=== PATIENT | male | born 2005 | race African-American/Black ===

== ENCOUNTER 2024-06-19 11:12 | Outpatient (AMB) | payer BC, SELFPAY ==
--- NOTE | 2024-06-19 11:17 | MHC.PC.OV ---
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 Prior PCP? - Unknown PCP name/practice Last office visit/CPE/labs - I have no idea. It's been a little while. Acute issue(s) - Genetial herpes: on valcyclovir 1000 mg BID. Denies genital lesions. - He reports seasonal depression. He occasionally feels sad, hopeless, and does not want to be here (earth). He notes that he sometimes does not want to partake in anything in [place]. I just want to be like a fucking bug or something.....or like my fat ass dog, just sit down and eat. He notes that he has been distracted and therefore has not felt depressed for the past 3 weeks. He has been going out every night, working, and taking out whores on dates. He notes that he is depressed 3 out of 7 days and has been feeling that way forever. He attributes his depression to multiple negative life experiences, including work and personal stressors. He denies reynold or hypomania episodes. He has a history of psychotherapy at childhood. He has never been evaluated by a psychiatrist. He denies history of taking psychotropic medications or psychiatric admissions. He currently lives with his mother. His father lives down the street from them. He notes that his mother and father have been nurturing and instrumental in his life. He is the only child. He has some college level education. He works at a [employer]. He notes that, at times, he feels likes he does not want to be here (earth); however, he does not have plans of committing suicide; he does not have the courage to do so. He denies anxiety. He denies homicidal ideation and auditory or visual hallucinations. Past Medical History - Gential herpes: on valcyclovir 1000 mg BID. Denies genital lesions. Surgical History - None Family History - Dad: Hypercholesterolemia - Mom: Asthma - MGM: Cancer (unknown) - MGF: Diabetes Social History - He started smoking cigarettes 3 wks ago and has been smoking 7 daily. Does not vape. Drinks 7 shots of vodka or smirnoff daily, started drinking heavily at his 19st birthday. He smokes 2-3 L of cannabis daily, up to 7L when with friends. - Has been making unhealthy dietary choices. He is active but does not exercise. 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 - Last eye exam was about a year ago - Last dental visit was 3-4 months ago - Last tetanus vaccine unknown but within the past 10 years - Has not been vaccinated for the flu this season; declines vaccination PFSH Family History (Updated 06/19/24 @ 11:32 by Melba Mark MA) Mother Asthma Maternal Grandmother High blood pressure Cancer Father High cholesterol Maternal Grandfather Diabetes Social History (Updated 06/19/24 @ 11:26 by Melba Mark MA) Housing: House Patient Tobacco Use Status: Current everyday Tobacco user Cigarettes Per Day: 7 e-Cigarette/Vaping Use: Never Used Second Hand Smoke Exposure: Yes Substance Use Type: Marijuana service: No Current occupational status: employed 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 1. Little interest or pleasure in doing things: several days 2. Feeling down, depressed, or hopeless: more than half the days 3. Trouble falling or staying asleep, or sleeping too much: several days 4. Feeling tired or having little energy: several days 5. Poor appetite or overeating: several days 6. Feeling bad about yourself - or that you are a failure or have let yourself or your family down: several days 7. Trouble concentrating on things, such as reading the newspaper or watching television: more than half the days 8. Moving or speaking so slowly that other people could have noticed. Or the opposite - being so fidgety or restless that you have been moving around a lot more than usual: not at all 9. Thoughts that you would be better off or of hurting yourself in some way: several days Total score: 10 Depression Screening Interpretation: Positive Depression Screening Follow-up: Existing condition Depression Screening Done: Yes 80152 - PHQ-9 Billing: Yes Source: Developed by Drs. Grant Nichols, Shannon Soto, Johnnie Wellington and colleagues, with an educational aryan from [employer]. Thrive Questionnaire Date Thrive assessed: 06/19/24 I am a: Patient What is your living situation today?: I have a steady place to live Within the past 12 months, did the food you bought not last and you didn't have the money to get more?: Never true Within the past 12 months, did you worry whether your food would run out before you got money to buy more?: Never true Do you have trouble paying for medicines?: No Do you have trouble getting transportation to medical appointments?: No Do you have trouble paying your heating and electricity bill?: No Do you have trouble taking care of your child, family member or friend?: No Do you have trouble with day-to-day activities such as bathing, preparing meals, shopping, managing finances, etc.?: No Are you currently unemployed and looking for a job?: No Are you interested in more education?: No Please select the resources that you would like help with: None Currently or been in a relationship where the following occur: No concerns reported THRIVE Score: 0 AUDIT C Alcohol Use Questionnaire (AUDIT-C) 1. How often do you have a drink containing alcohol?: 4 or more times a week 2. How many drinks containing alcohol do you have on a typical day when you are drinking?: 3 or 4 3. How often do you have six or more drinks on one occasion?: Daily or almost daily Total Score: 9 Score Reviewed/Action Taken: Yes ROBERTO-7 AMB Questionnaire ROBERTO-7 Date ROBERTO - 7 assessed: 06/19/24 Feeling nervous, anxious, or on edge: 1 = Several days Not being able to stop or control worryin = Not at all Worrying too much about different things: 1 = Several days Trouble relaxin = Not at all Being so restless that it is hard to sit still: 0 = Not at all Becoming easily annoyed or irritable: 1 = Several days Feeling afraid as if something awful might happen: 0 = Not at all Total ROBERTO-7 score (0-4 normal; 5-9 mild; 10-14 moderate; 15-21 severe): 3 Source: Developed by Drs. Grant Nichols, Shannon Soto, Johnnie Wellington and colleagues, with an educational aryan from [employer]. ROBERTO-7 Assessment Billing ROBERTO-7 Assessment Tool: ROBERTO-7 Assessment 46801 Review of Systems Const Details: Denies chills, Denies fatigue, Denies fever(s), Denies headache(s) and Denies weakness HEENT Denies change in vision, Denies dizziness, Denies headache(s), Denies hearing loss, Denies nasal congestion, Denies sinus pain, Denies sinus pressure and Denies sore throat Card Denies chest pain, Denies lightheadedness, Denies dyspnea and Denies other (palpitations) Resp Denies cough, Denies dyspnea and Denies wheezing GI Denies abdominal pain, Denies melena, Denies hematochezia, Denies change in bowel habits, Denies dyspepsia and Denies nausea Denies hematuria and Denies dysuria Musc Denies abnormal gait, Denies myalgias, Denies arthralgias, Denies numbness and Denies tingling Skin/Breast Denies rash, Denies unusual bruising and Denies wounds Neuro Denies abnormal gait, Denies dizziness, Denies headache(s), Denies memory loss, Denies numbness, Denies Sensory deficit (Neuro), Denies tingling and Denies weakness Psych Denies anxiety, Reports depression and Denies memory loss Endo Denies cold intolerance, Denies fatigue, Denies heat intolerance, Denies polydipsia and Denies polyuria Aniceto/Lymph Denies easy bleeding and Denies easy bruising Aller/Immun Denies wheezing Physical exam (Primary Care) Vital Signs: Last Vital Signs Temp 97.5 F 06/19/24 11:26 Pulse 66 06/19/24 11:26 Resp 16 06/19/24 11:26 BP 111/70 06/19/24 11:26 Pulse Ox 100 06/19/24 11:26 Oxygen Delivery Method Room Air 06/19/24 11:26 BMI result Body Mass Index 18.5 Tobacco/Smoking Status: Tobacco use Status Tobacco use date assessed 06/19/24 06/19/24 11:34 Patient Tobacco Use Status Current everyday Tobacco 06/19/24 11:34 e-Cigarette/Vaping Use Never Used 06/19/24 11:34 PHQ-9: PHQ-9 Score PHQ-9: Total score 10 06/28/24 07:06 Depression Screening Interpretation: Positive Depression Screening Follow-up: Existing condition Thrive Assessment: Date of Thrive Assessment Date Thrive assessed 06/19/24 06/19/24 11:34 Currently or been in a relationship where the following occur: No concerns reported Const Other: General: no acute distress, well developed, alert and awake Nutritional Appearance: well nourished Orientation/consciousness: patient oriented x3 HENMT Head: Yes normocephalic and Yes atraumatic Ears: hearing grossly normal bilaterally and TM's normal bilaterally General nose exam: Normal external nose present and Normal nares present Mouth: Normal oral and palatal mucosa present and moist mucous membranes Teeth and gingiva: dentition normal Throat: Yes oropharynx normal Eyes Pupils: Equal, round and reactive pupils present and Pupil accommodation reflex normal EOM: EOMs intact bilaterally Neck Neck: Yes normal visual inspection, Yes no lymphadenopathy and Yes trachea midline Thyroid: Thyroid normal Carotids: no bruits Lymphatic: no lymphadenopathy noted Chest Chest palpation & inspection: normal inspection of the chest Resp Effort & Inspection: normal respiratory effort Auscultation: clear to auscultation bilaterally Cardio Rate: regular rate Rhythm: regular rhythm Heart sounds: S1 normal heart sound present, S2 normal heart sound present, no gallops, no murmurs and no rubs Bruits: no abdominal aortic bruits and no carotid bruits GI Palpation (GI): No Abdominal aortic bruit present, Soft to palpation, nontender, No hepatosplenomegaly present and No Rebound tenderness present Auscultation: normal bowel sounds General: Yes no CVA tenderness Back/Spine/Pelvis Back: no CVA tenderness Cervical Spine: cervical ROM normal and No Cervical spine tenderness Thoracic/Lumbar Spine: thoraco-lumbar ROM normal, No pain with thoraco-lumbar ROM, No thoracic spinal tenderness and No lumbar spinal tenderness Skin General: warm and dry. Normal skin color. Normal skin turgor Lesions: no lesions Rashes: no rashes Trauma: no lacerations or abrasions Wounds: no wounds Nails: normal Neuro General: patient oriented x3, gait normal and CN's II-XI intact bilaterally Cranial nerves: Yes Equal, round and reactive pupils present Cognition (Neuro): normal cognition Gait exam (Neuro): Normal gait present Motor exam (neuro): 5/5 motor strength present throughout Sensory Exam: No Sensory deficit (Neuro) Deep tendon reflexes (DTR's): Right patellar reflex intensity grade: 2+ and Left patellar reflex intensity grade: 2+ Extrem General: Yes normal to inspection, No edema and No calf tenderness Psych Appearance: grossly normal Affect: normal affect Attitude: cooperative Thought process: Normal thought process present Coding Level of Care Code New Pt Level 4 (94724) New Pt Prev Care 18-39yr(61160 Diagnoses Normal physical examination, routine Z00.00 Depression F32.A Alcohol use disorder F10.90 Cannabis abuse F12.10 Smoking 1/2 pack a day or less F17.210 Poor nutrition E63.9 Poor sleep hygiene Z72.821 Screen for STD (sexually transmitted disease) Z11.3 Laboratory tests ordered as part of a complete physical exam (CPE) Z00.00 Additional Codes ROBERTO-7 Assessment Billing - ROBERTO-7 Assessment Tool: ROBERTO-7 Assessment 89319 ([id number]) PHQ-9 - 91178 - PHQ-9 Billing: Yes ([id number]) Assessment & Plan Assessment & Plan (1) Normal physical examination, routine: Code(s): Z00.00 - Encounter for general adult medical examination without abnormal findings Category: Medical Plan: No significant functional limitations noted. Healthy diet and routine exercise encouraged. Perform lab work and follow-up for telehealth visit in 2-3 weeks. Return sooner with symptoms or concerns. Verbalized understanding and agreed with the treatment plan. (2) Depression: Code(s): F32.A - Depression, unspecified Category: Medical Plan: He reports seasonal depression. He occasionally feels sad, hopeless, and does not want to be here (earth). He notes that he sometimes does not want to partake in anything in [place]. I just want to be like a fucking bug or something.....or like my fat ass dog, just sit down and eat. He notes that he has been distracted and therefore has not felt depressed for the past 3 weeks. He has been going out every night, working, and taking out whores on dates. He notes that he is depressed 3 out of 7 days and has been feeling that way forever. He attributes his depression to multiple negative life experiences, including work and personal stressors. He denies reynold or hypomania episodes. He has a history of psychotherapy at childhood. He has never been evaluated by a psychiatrist. He denies history of taking psychotropic medications or psychiatric admissions. He currently lives with his mother. His father lives down the street from them. He notes that his mother and father have been nurturing and instrumental in his life. He is the only child. He has some college level education. 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 He notes that, at times, he feels likes he does not want to be here (earth); however, he does not have plans of committing suicide; he does not have the courage to do so. He denies anxiety. He denies homicidal ideation and auditory or visual hallucinations. PHQ-9 score revealed moderate depression. ROBERTO-7 score is normal. He is willing to start depression treatment with psychotropic medications; however, he does not want to stop every use of cannabis which may interfere with treatment and potentially cause severe or life-threatening adverse reactions. He smokes 2-3 L of cannabis daily, up to 7L when with friends. He also drinks significant amount of alcohol which may significantly interfere with psychotropic medications. He is not willing to cut down or avoid alcohol consumption. He also declines referral for psychotherapy at this time. Routine exercise encouraged. Follow-up with PCP with concerns or worsening symptoms. Verbalized understanding and agreed with the plan. (3) Alcohol use disorder: Code(s): F10.90 - Alcohol use, unspecified, uncomplicated Category: Medical Plan: He drinks 7 shots of vodka or smirnoff daily, started drinking heavily at his 19st birthday. Instructed on the health risks and complications of excessive alcohol intake and encouraged to stop drinking. No more than 2 drinks daily or 5 weekly. Declines referral to [facility] for alcohol treatment and notes that he may start to cut down on drinking. Encouraged to follow-up with PCP if he changes mind on referral to [facility] or with any symptoms or concerns. Verbalized understanding and agreed with the plan. (4) Cannabis abuse: Code(s): F12.10 - Cannabis abuse, uncomplicated Category: Medical Plan: He smokes 2-3 L of cannabis daily, up to 7L when with friends. Encouraged to avoid excessive cannabis use which can worsen depressive or anxiety symptoms. Informed that cannabis may also interfere with metabolic activities of some antidepressants, potentially increasing side effects or altering effectiveness. Cannabis may also cause increased sedation dizziness or confusion when combined with certain psychotropic medications. He is open to treat his depression but would not stop his current having of cannabis use. Encouraged stop cannabis use and follow-up for treatment of his depression. He notes that he would not stop smoking cannabis. (5) Smoking 1/2 pack a day or less: Code(s): F17.210 - Nicotine dependence, cigarettes, uncomplicated Category: Social Hx Plan: He started smoking cigarettes 3 weeks ago and has been smoking 7 cigarettes daily. Instructed on the health risks and complications of cigarette smoking and encouraged smoking cessation. Declines nicotine treatment for smoking cessation at this time and notes that he will stop smoking without medication. Advised to follow-up with PCP as needed. Verbalized understanding and agreed with the plan. 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 Healthy diet and routine exercise encouraged. Encouraged to eat meals rich in protein to improve his weight. Routine exercise encouraged. Follow-up as needed. Verbalized understanding and agreed with the plan. (7) Poor sleep hygiene: Code(s): Z72.821 - Inadequate sleep hygiene Category: Medical Plan: His sleep is poor; he is usually at the clubs throughout the night for 4 days weekly and go to directly to work in the morning. Instructed on the effect of poor sleep on mental and physical health. Instructed on sleep hygiene. Verbalized understanding and agreed with the plan. (8) Screen for STD (sexually transmitted disease): Code(s): Z11.3 - Encounter for screening for infections with a predominantly sexual mode of transmission Category: Medical Plan: Labs ordered. (9) Laboratory tests ordered as part of a complete physical exam (CPE): Code(s): Z. - Encounter for general adult medical examination without abnormal findings Category: Medical Plan: Fasting labs ordered as part of a complete physical exam. Advised to fast for at least 10 hours before getting labs drawn. May drink water Verbalized understanding and agreed with treatment plan. Orders: Orders Microalbumin, Random (w Creat) 06/19/24 Z00. - Encounter for general adult medical examination without abnormal findings UA CC w/rflx Micro + Cult 06/19/24 Z00.00 - Encounter for general adult medical examination without abnormal findings Vitamin D 25-OH Total 06/19/24 Z00.00 - Encounter for general adult medical examination without abnormal findings Complete Blood Count Auto Diff 06/19/24 Z00.00 - Encounter for general adult medical examination without abnormal findings Comprehensive [place]. Panel Fast 06/19/24 Z00.00 - Encounter for general adult medical examination without abnormal findings Lipid Panel 06/19/24 Z00.00 - Encounter for general adult medical examination without abnormal findings TSH reflex Free T4 06/19/24 Z00.00 - Encounter for general adult medical examination without abnormal findings
[2024-06-19 11:26] VITALS: BP 111/70; PULSE 66; RESP 16; TEMP 36.4; O2SAT 100; BMI 18.5
== END 2024-06-19 12:14 | disposition home or self-care (01) ==
LOC: HO.HMCFM 11:12
PROVIDERS: PCP Nurse Practitioner Family; Visit Provider Nurse Practitioner Family
DX: Z00.00 Encounter for general adult medical examination without abnormal findings (principal); F32.A Depression, unspecified; F10.90 Alcohol use, unspecified, uncomplicated; F12.10 Cannabis abuse, uncomplicated; F17.210 Nicotine dependence, cigarettes, uncomplicated; E63.9 Nutritional deficiency, unspecified; Z72.821 Inadequate sleep hygiene; Z11.3 Encounter for screening for infections with a predominantly sexual mode of transmission

== ENCOUNTER → 2024-06-19 11:12 | Outpatient (BNVA) | payer BC, SELFPAY | PROVIDERS: PCP Nurse Practitioner Family; Visit Provider Nurse Practitioner Family | DX: Z00.00 Encounter for general adult medical examination without abnormal findings (principal); F32.A Depression, unspecified; F10.90 Alcohol use, unspecified, uncomplicated; F12.10 Cannabis abuse, uncomplicated; E63.9 Nutritional deficiency, unspecified; F17.210 Nicotine dependence, cigarettes, uncomplicated; Z72.821 Inadequate sleep hygiene | CPT/HCPCS: 96127 ==

== ENCOUNTER 2024-07-14 10:22 | Outpatient (REF) | payer BC, SELFPAY ==
--- OUTSIDE RECORDS SUMMARY | 2024-07-14 11:09 | XMS_ITS | Clinical Summary ---
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 20 each 06/07/2024 Encounters Date Type Department Care Team Description 06/07/2024 10:19 PM EDT - 06/08/2024 12:09 AM EDT Emergency [facility] Emergency [address] [place] [address] Herpes simplex infection of penis (Primary Dx); Lymphadenopathy; Dysuria Discharge Disposition: Home or Self Care from Last 3 Months Social History Tobacco Use Types Packs/Day Years Used Date Smoking Tobacco: Never Assessed Sex and Gender Information Value Date Recorded Sex Assigned at Male 06/07/2024 10:34 PM EDT Legal Sex Male 5:09 PM EDT Gender Identity Male 06/07/2024 10:34 PM EDT Sexual Orientation Straight 06/07/2024 10 :34 PM EDT Last Filed Vital Signs Vital Sign Reading Time Taken Comments Blood Pressure 110/75 06/07/2024 11:40 PM EDT Pulse 59 06/07/2024 11:40 PM EDT Temperature 36.9 ??C (98.4 ??F) 06/07/2024 11:40 PM E DT Respiratory Rate 17 06/07/2024 11:40 PM EDT Oxygen Saturation 97% 06/07/2024 11:40 PM EDT Inhaled Oxygen Concentration - - Weight 59 kg (130 lb) 06/07/2024 5:21 PM EDT Height 172.7 cm (5' 8 ) 06/07/2024 5:21 PM EDT Body Mass Index 19.77 06/07/2024 5:21 PM EDT Plan of Treatment Health Maintenance Due Date Last Done Comments IPV Vaccines (4 of 4 - 4-dose series) 2007 2003, 2003, 2003 DTaP,Tdap,and Td Vaccines (5 - Tdap) 2014 07/11/2004, 2003, 2003, Additional history exists HPV Vaccines (1 - Male 3-dose series) 2018 Meningococcal B Vaccine (1 of 2 - Standard) 2019 COVID-19 Vaccine ( - season) 2023 Annual Well Child Visit (3-21 years old) 06/08/2024 Depression Screening 06/08/2024 HIV Screening 06/08/2024 Hepatitis C Screening 06/08/2024 Social Influencers of Health Screening 06/08/2024 Influenza Vaccine (Season Ended) 2024 Hepatitis B Vaccines Completed 2003, 2003, 2003 Pneumococcal Vaccine: Pediatrics (0 to 5 Years) and At-Risk Patients (6 to 64 Years) Aged Out 2003, 2003, 2003 No longer eligible based on patient's age to complete this topic MMR Vaccines Completed 03/11/2004 Varicella Vaccines Aged Out 03/11/2004 No longer eligible based on patient's age to complete this topic HIB Vaccines Completed 07/11/2004, 08/10, 2003, Additional history exists Hepatitis A Vaccines Aged Out No long er eligible based on patient's age to complete this topic Meningococcal ACWY Vaccine Aged Out N o longer eligible based on patient's age to complete this topic RSV Immunization Patients Under 20 months Aged Out No longer eligible based on patient's age to complete this topic Procedures Procedure Name Priority Date/Time Associated Diagnosis Comments YELLOW URINE NO ADDITIVE Routine 06/07/2024 11:05 PM EDT EXTRA TUBES Routine 06/07/2024 11:05 PM EDT CHLAMYDIA TRACHOMATIS AND NEISSERIA GONORRHOEAE PCR STAT 06/07/2024 11:05 PM EDT [facility] URINE CULTURE TUBE STAT 06/07/2024 6:18 PM EDT URINALYSIS WITH REFLEX MICROSCOPIC AND CULTURE STAT 06/07/2024 6:18 PM EDT URINALYSIS WITH REFLEX MICROSCOPIC AND CULTURE STAT 06/07/2024 6:18 PM EDT TREPONEMA PALLIDUM ANTIBODY WITH REFLEX TO RPR AND PARTICLE AGGLUTINATION Add-On 06/07/2024 5:46 PM EDT CBC WITH AUTO DIFFERENTIAL STAT 06/07/2024 5:46 PM EDT LIPASE STAT 06/07/2024 5:46 PM EDT COMPREHENSIVE METABOLIC PANEL STAT 06/07/2024 5:46 PM EDT CBC AND DIFFERENTIAL STAT 06/07/2024 5:46 PM EDT from Last 3 Months Results * Yellow urine no additive (06/07/2024 11:05 PM EDT) Extra Tube Hold for add-ons. 06/08/2024 1:01 AM EDT [facility] Comment:Auto resulted. Urine Urine specimen obtained by clean catch procedure / Unknown 06/07/2024 11:05 PM EDT 06/07/2024 11:26 PM EDT us Iman AARGON LAB URINE ORDERABLES Final Resu lt [facility] [address] [place] [address], [place] [phone] * Chlamydia trachomatis and Neisseria gonorrhoeae molecular study (06/07/2024 11:05 PM EDT) [facility] Neisseria gonorrhoeae PCR Negative Negative LAB MOLECULAR DIAGNOSTICS METHOD 06/08/2024 2:18 PM EDT [facility] Chlamydia trachomatis PCR Negative Negative LAB MOLECULAR DIAGNOSTICS METHOD 06/08/2024 2:18 PM EDT [facility] Urine First stream urine specimen / Unknown 06/07/2024 11:05 PM EDT 06/07/2024 11:26 PM EDT us Iman ARAGON LAB MICROBIOLOGY - GENERAL JORY ALATORRE Final Result [facility] [address] [place] [address], [place] [phone] * (ABNORMAL) Urinalysis with reflex microscopic and culture (06/07/2024 6:18 PM EDT) [facility] Specific [place] Urine 1.017 1.003 - 1.030 LAB URINALYSIS - AUTOMATED METHOD 06/07/2024 6:50 PM T [facility] pH, Urine 6.5 5.0 - 8.0 pH LAB URINALYSIS - AUTOMATED METHOD 06/07/2024 6:50 PM [facility] Leukocytes, Urine Negative Negative LAB URINALYSIS - AUTOMATED METHOD 06/07/2024 6:50 PM [facility] Nitrite, Urine Negative Negative LAB URINALYSIS - AUTOMATED METHOD 06/07/2024 6:50 PM T [facility] Protein, Urine Trace <=Trace mg/dL LAB URINALYSIS - AUTOMATED METHOD 06/07/2024 6:50 PM T [facility] Glucose, Urine Negative Negative mg/dL LAB URINALYSIS - AUTOMATED METHOD 06/07/2024 6:50 PM [facility] Ketones, Urine Trace(A) Negative mg/dL LAB URINALYSIS - AUTOMATED METHOD 06/07/2024 6:50 PM EDT [facility] Urobilinogen, Urine 1.0 0.2 - 1.0 mg/dL LAB URINALYSIS - AUTOMATED METHOD 06/07/2024 6:50 PM EDT [facility] Bilirubin, Urine Negative Negative LAB URINALYSIS - AUTOMATED METHOD 06/07/2024 6:50 PM EDT [facility] Blood, Urine Negative Negative LAB URINALYSIS - AUTOMATED METHOD 06/07/2024 6:50 PM EDT [facility] Urine Urine specimen obtained by clean catch procedure / Unknown Non-blood Collection / Unknown 06/07/2024 6:18 PM EDT 06/07/2024 6:45 PM EDT Scott Marroquin MD LAB URINE ORDERABLES Final Resu lt Performing Organization Address City/[facility] Hospital/ZIP Co de Phone Number [facility] [address] [place] [address], [place] [phone] * Hickman urine culture tube (06/07/2024 6:18 PM EDT) Extra Tube Hold for add-ons. 06/07/2024 8:01 PM EDT [facility] Comment:Auto resulted. Urine Urine specimen obtained by clean catch procedure / Unknown Non-blood Collection / Unknown 06/07/2024 6:18 PM EDT 06/07/2024 6:45 PM EDT us Scott Marroquin MD LAB URINE ORDERABLES Final Resu lt [facility] [address] [place] [address], [place] [phone] * Treponema pallidum antibody with reflex to RPR and particle agglutination (06/07/2024 5:46 PM EDT) T. Pallidum Antibodies Negative Negative LAB CHEMISTRY METHOD 06/07/2024 11:36 PM EDT [facility] Blood Venous blood specimen / Unknown Venipuncture / Unknown 06/07/2024 5:46 PM EDT 06/07/2024 5:54 PM EDT us Iman ARAGON LAB BLOOD ORDERABLES Final Resu lt [facility] [address] [place] [address], * (ABNORMAL) CBC auto differential (06/07/2024 5:46 PM EDT) WBC 6.4 4.8 - 10.8 K/mcL LAB HEMETOLOGY METHOD 06/07/2024 6:00 PM EDT [facility] RBC 4.80 4.50 - 5.50 M/[facility] LAB HEMETOLOGY METHOD 06/07/2024 6:00 PM EDT [facility] Hemoglobin 14.7 13.5 - 17.5 g/dL LAB HEMETOLOGY METHOD 06/07/2024 6:00 PM EDT [facility] Hematocrit 43.4 42.0 - 54.0 % LAB HEMETOLOGY METHOD 06/07/2024 6:00 PM EDT [facility] MCV 90.2 79.0 - 98.0 FL LAB HEMETOLOGY METHOD 06/07/2024 6:00 PM EDT [facility] MCH 30.6 27.0 - 32.0 pcg LAB HEMETOLOGY METHOD 06/07/2024 6:00 PM EDT [facility] MCHC 33.9 32.0 - 37.0 g/dL LAB HEMETOLOGY METHOD 06/07/2024 6:00 PM EDT [facility] RDW 11.9 11.0 - 15.0 % LAB HEMETOLOGY METHOD 06/07/2024 6:00 PM T [facility] Platelets 213 130 - 400 K/mcL LAB HEMETOLOGY METHOD 06/07/2024 6:00 PM [facility] MPV 10.5 7.0 - 11.0 FL LAB HEMETOLOGY METHOD 06/07/2024 6:00 PM [facility] NRBC 0.0 <1.0 % LAB HEMETOLOGY METHOD 06/07/2024 6:00 PM [facility] NRBC Absolute 0.00 <0.10 K/mcL LAB HEMETOLOGY METHOD 06/07/2024 6:00 PM [facility] Neutrophils Relative 71.3 % LAB HEMETOLOGY METHOD 06/07/2024 6:00 PM [facility] Lymphocytes Relative 15.6 % LAB HEMETOLOGY METHOD 06/07/2024 6:00 PM [facility] Monocytes Relative 10.4 % LAB HEMETOLOGY METHOD 06/07/2024 6:00 PM [facility] Eosinophils Relative 1.9 % LAB HEMETOLOGY METHOD 06/07/2024 6:00 PM [facility] Basophils Relative 0.5 % LAB HEMETOLOGY METHOD 06/07/2024 6:00 PM [facility] Immature Granulocytes Relative 0.3 % LAB HEMETOLOGY METHOD 06/07/2024 6:00 PM [facility] Neutrophils Absolute 4.54 1.50 - 7.00 K/mcL LAB HEMETOLOGY METHOD 06/07/2024 6:00 PM [facility] Lymphocytes Absolute 0.99(L) 1.00 - 5.00 K/mcL LAB HEMETOLOGY METHOD 06/07/2024 6:00 PM [facility] Monocytes Absolute 0.66 0.20 - 1.00 K/mcL LAB HEMETOLOGY METHOD 06/07/2024 6:00 PM EDT [facility] Eosinophils Absolute 0.12 0.00 - 0.50 K/[facility] LAB HEMETOLOGY METHOD 06/07/2024 6:00 PM EDT [facility] Basophils Absolute 0.03 0.00 - 0.20 K/[facility] LAB HEMETOLOGY METHOD 06/07/2024 6:00 PM EDT [facility] Immature Granulocytes Absolute 0.02 0.00 - 0.03 K/[facility] LAB HEMETOLOGY METHOD 06/07/2024 6:00 PM EDT [facility] Blood Venous blood specimen / Unknown Venipuncture / Unknown 06/07/2024 5:46 PM EDT 06/07/2024 5:54 PM EDT Scottana Marroquin MD LAB BLOOD ORDERABLES Final Resu lt Performing Organization Address [facility]/ZIP Co de Phone Number [facility] [address] [place] [address], [place] [phone] * Lipase (06/07/2024 5:46 PM EDT) Lipase 20 13 - 75 unit/L LAB CHEMISTRY METHOD 06/07/2024 6:20 PM EDT [facility] Blood Venous blood specimen / Unknown Venipuncture / Unknown 06/07/2024 5:46 PM EDT 06/07/2024 5:54 PM EDT Scott Marroquin MD LAB BLOOD ORDERABLES Final Resu lt [facility] [address] [place] [address], [place] [phone] * (ABNORMAL) Comprehensive metabolic panel (06/07/2024 5:46 PM EDT) Sodium 138 133 - 145 mmol/L LAB CHEMISTRY METHOD 06/07/2024 6:20 PM EDT [facility] Potassium 3.9 3.5 - 5.5 mmol/L LAB CHEMISTRY METHOD 06/07/2024 6:20 PM [facility] Chloride 102 96 - 110 mmol/L LAB CHEMISTRY METHOD 06/07/2024 6:20 PM [facility] CO2 32 21 - 32 mmol/L LAB CHEMISTRY METHOD 06/07/2024 6:20 PM [facility] Anion Gap 4 3 - 11 LAB CHEMISTRY METHOD 06/07/2024 6:20 PM [facility] Glucose 108(H) 70 - 100 mg/dL LAB CHEMISTRY METHOD 06/07/2024 6:20 PM [facility] BUN 6 5 - 25 mg/dL LAB CHEMISTRY METHOD 06/07/2024 6:20 PM [facility] Creatinine 1.03 0.70 - 1.30 mg/dL LAB CHEMISTRY METHOD 06/07/2024 6:20 PM [facility] eGFR 106 >=60 mL/min/1. 73m2 LAB CHEMISTRY METHOD 06/07/2024 6:20 PM [facility] Comment:Calculation based on the??Chronic Kidney Disease Epidemiology Collaboration (CKD-EPI) equation refit??without adjustment for race. BUN/Creatinine Ratio 5.8 LAB CHEMISTRY METHOD 06/07/2024 6:20 PM [facility] Calcium 9.3 8.5 - 10.5 mg/dL LAB CHEMISTRY METHOD 06/07/2024 6:20 PM [facility] AST (SGOT) 13 10 - 42 unit/L LAB CHEMISTRY METHOD 06/07/2024 6:20 PM [facility] ALT (SGPT) 16 10 - 60 unit/L LAB CHEMISTRY METHOD 06/07/2024 6:20 PM [facility] Alkaline Phosphatase 90 42 - 121 unit/L LAB CHEMISTRY METHOD 06/07/2024 6:20 PM EDT [facility] Total Protein 7.6 6.0 - 8.0 g/dL LAB CHEMISTRY METHOD 06/07/2024 6:20 PM EDT [facility] Albumin 4.1 3.2 - 5.0 g/dL LAB CHEMISTRY METHOD 06/07/2024 6:20 PM EDT [facility] Total Bilirubin 0.4 0.0 - 1.4 mg/dL LAB CHEMISTRY METHOD 06/07/2024 6:20 PM EDT [facility] Blood Venous blood specimen / Unknown Venipuncture / Unknown 06/07/2024 5:46 PM EDT 06/07/2024 5:54 PM EDT Scott B Lopez [facility] LAB BLOOD ORDERABLES Final Resu lt [facility] [address] [place] [address], from Last 3 Months Insurance [facility] 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
[2024-07-14 14:04] LABS: MANUAL DIFF FLAG NO
[2024-07-14 14:07] LABS: Appearance Urine Clear; Color Urine Yellow; Glucose Urine UA Negative (Negative); Leukocyte Esterase Urine Trace (Negative); Nitrite Urine Negative (Negative); PH 8.5 (5.0-9.0); UMIC TRIGGER UACC YES; Urine Blood Negative (Negative); Urine Ketones Negative (Negative); Urine Protein Negative (Neg-Trace)
[2024-07-14 14:12] LABS: Bacteria Urine None Seen (None Seen); Hyaline Casts Urine 0-2 /LPF (0-2); RBC Urine 0-2 /HPF (0-2); Squamous Epithelial Cell Urine 0-2 /HPF (0-2); UACC Culture Trigger YES
[2024-07-14 14:16] LABS: Basophils Percent Auto 0.4 % (0-2); Eosinophils Absolute Auto 0.4 X10*3/uL (0.0-0.4); Eosinophils Percent Auto 5.1 % (0-4); Hematocrit 42.7 % (42.0-52.0); Imm Gran Abs Auto 0.03 X10*3/uL (0.00-0.03); Imm Gran Pct Auto 0.4 % (0.0-0.4); Lymphocytes Absolute Auto 1.8 X10*3/uL (1.2-4.9); Mean Corpuscular HGB Conc 35.1 g/dl (31.0-36.0); Mean Corpuscular Hemoglobin 31.3 pg (27.0-33.0); Mean Corpuscular Volume 89.1 fL (80.0-98.0); Mean Platelet Volume 10.9 fL (9.4-12.4); Monocytes Absolute Auto 0.7 X10*3/uL (0.1-1.2); Monocytes Percent Auto 9.8 % (2-11); Neutrophils Absolute Auto 4.2 x10*3/uL (2.0-8.3); Neutrophils Percent Auto 59.3 % (45-73); Platelet Count 317 X10*3/uL (160-400); Red Blood Count 4.79 X10*6/uL (4.60-5.80); Red Cell Distribution Width 13.1 % (11.0-16.0)
[2024-07-14 14:49] LABS: TSH reflex Free T4 1.21 uIU/mL (0.32-4.0); Vitamin D 25-OH Total 29.1 ng/mL (>30)
[2024-07-14 15:02] LABS: Anion Gap 8 (12-20)
[2024-07-14 15:07] LABS: Alanine Aminotransferase 24 U/L (0-40); Albumin Level 4.1 g/dL (3.5-5.0); Alkaline Phosphatase 78 U/L (39-117); Aspartate Amino Transferase 28 U/L (5-37); Bilirubin Total 0.4 mg/dL (0.0-1.0); Blood Urea Nitrogen 10 mg/dL (9-16); Calcium 9.3 mg/dL (8.4-10.2); Carbon Dioxide 31 mmol/L (22-29); Chloride 106 mmol/L (96-108); Cholesterol 177 mg/dL (<200); Estimated Glomerular Filt Rate > 60; Glucose Fasting 90 mg/dL (60-99); HDL Cholesterol 47 mg/dL (>40); LDL Cholesterol Calculated 105 mg/dL (<100); Potassium 3.8 mmol/L (3.3-5.1); Sodium 141 mmol/L (135-145); Triglycerides 126 mg/dL (<150)
[2024-07-14 15:21] LABS: Creatinine Urine 189.41 mg/dL; Microalbum/Creatinine Ratio Ur 2.6 ug/mg cr (<30)
[2024-07-14 16:14] LABS: CT PCR NOT DETECTED (Not Detect.); NG PCR NOT DETECTED (Not Detect.)
[2024-07-15 03:57] LABS: Syphilis Screen Nonreactive (Nonreactive)
[2024-07-15 04:09] LABS: HBS Num1 0.83 mIU/mL (0-7.99); HBc Num1 0.34 S/CO (0.00-0.79); HBsAGNum1 0.47 S/CO (0.00-0.99); HIV AB/AG Nonreactive (Nonreactive); HIV Num 1 0.06 S/CO (0.00-0.99); Hepatitis B Core Antibody Nonreactive (Nonreactive); Hepatitis B Surface Antigen Negative (Negative); ~HepC Num1 0.32 S/CO (0.00-0.79); ~Hepatitis B Surface Antibody NONREACTIVE (Nonreactive); ~Hepatitis C Antibody Nonreactive (Nonreactive)
== END 2024-07-14 10:23 | disposition home or self-care (01) ==
LOC: HO.WFDLDS 10:22
PROVIDERS: Visit Provider Nurse Practitioner Family
DX: Z00.00 Encounter for general adult medical examination without abnormal findings (principal); Z13.6 Encounter for screening for cardiovascular disorders
CPT/HCPCS: 80053; 80061; 81001; 81003; 82043; 82306; 82570; 84443; 85025; 86704; 86706; 86780; 86803; 87086; 87340; 87389; 87491; 87591

== ENCOUNTER → 2024-07-17 10:45 | Outpatient (BNVA) | payer BC, SELFPAY | PROVIDERS: PCP Nurse Practitioner Family; Visit Provider Nurse Practitioner Family | DX: E55.9 Vitamin D deficiency, unspecified (principal); E78.00 Pure hypercholesterolemia, unspecified | CPT/HCPCS: 98967 ==